=== PATIENT | female | born 1955 | race Two or more races ===

== ENCOUNTER 2019-04-24 17:55 | Emergency (ER) | payer SELFPAY ==
[~2019-04-24] VITALS: Ht 172.7 cm; Wt 82.0 kg
[2019-04-24 20:44] LABS: BASOPHILS % 0.8 % (0.0-2.0); EOSINOPHILS % 1.4 % (0.0-5.0); HEMATOCRIT. 39.7 % (36.0-48.0); HEMOGLOBIN. 13.3 g/dL (12.0-16.0); LYMPHOCYTES % 52.9 % (20.0-50.0); MEAN CORPUSCULAR HEMOGLOBIN 31.6 pg (28.0-32.0); MEAN CORPUSCULAR VOLUME 94.3 fL (81.0-99.0); MEAN PLATELET VOLUME 8.5 fl (7.4-10.4); MONOCYTES % 6.4 % (2.0-8.0); NEUTROPHILS % 38.5 % (40.0-76.0); PLATELET 199 x1000/uL (130-400); RED CELL DISTRIBUTION WIDTH 16.8 % (11.6-14.6)
[2019-04-24 20:44] LABS: CLARITY URINE CLEAR (CLEAR); COLOR URINE YELLOW (YELLOW); KETONES URINE NEGATIVE (NEGATIVE); LEUKOCYTE ESTERASE URINE TRACE (NEGATIVE); NITRITE URINE NEGATIVE (NEGATIVE); OCCULT BLOOD URINE NEGATIVE (NEGATIVE); PROTEIN URINE NEGATIVE (NEGATIVE); SPECIFIC GRAVITY URINE 1.012 (1.005-1.030); UROBILINOGEN URINE 0.2 E.U./dL (0.2-1.0)
[2019-04-24 20:51] LABS: *AMPHETAMINES SCREEN URINE NEGATIVE (NEGATIVE); *BARBITURATES SCREEN URINE NEGATIVE (NEGATIVE); *BENZODIAZEPINES SCREEN URINE NEGATIVE (NEGATIVE); *COCAINE SCREEN URINE NEGATIVE (NEGATIVE); METHADONE URINE SCREEN NEGATIVE (NEGATIVE)
[2019-04-24 20:52] LABS: CHLORIDE 113 mEq/L (98-107)
[2019-04-24 20:52] LABS: CANNABINOID URINE SCREEN NEGATIVE (NEGATIVE); OPIATES URINE SCREEN NEGATIVE (NEGATIVE); PHENCYCLIDINE URINE SCREEN NEGATIVE (NEGATIVE)
[2019-04-24 20:57] LABS: ETHANOL BLOOD 188 mg/dL
[2019-04-24] MEDS ORDERED: PHENYTOIN SODIUM EXTENDED 100MG CAPSULE PO ONE (21:45)
[2019-04-25] MEDS ORDERED: IBUPROFEN 600MG TABLET PO ONE (13:00)
[2019-04-25 13:38] VITALS: BP 114/65
== END 2019-04-25 15:00 | disposition home or self-care (01) ==
LOC: EDBD → ER 19:02
DX: R07.9 Chest pain, unspecified (principal); R45.851 Suicidal ideations; G40.909 Epilepsy, unspecified, not intractable, without status epilepticus; G89.29 Other chronic pain; M54.9 Dorsalgia, unspecified; F20.9 Schizophrenia, unspecified; F17.210 Nicotine dependence, cigarettes, uncomplicated
CPT/HCPCS: 36415; 71045; 80185; 80305; 80307; 80320; 80329; 81003; 84484; 93005; 99284; 99406; G0480

== ENCOUNTER 2019-05-31 10:15 | Emergency (ER) | payer SELFPAY ==
[~2019-05-31] VITALS: Ht 167.6 cm; Wt 65.0 kg
[2019-05-31 10:18] VITALS: BP 186/98
[2019-05-31] MEDS ORDERED: HYDROCODONE/ACETAMINOPHEN 5/325MG TABLET PO ONE (11:30)
== END 2019-05-31 13:00 | disposition home or self-care (01) ==
LOC: ER 10:15
DX: S70.02XA Contusion of left hip, initial encounter (principal); E11.9 Type 2 diabetes mellitus without complications; I10 Essential (primary) hypertension; W01.0XXA Fall on same level from slipping, tripping and stumbling without subsequent striking against object, initial encounter; Y93.01 Activity, walking, marching and hiking; Y92.89 Other specified places as the place of occurrence of the external cause; Y99.8 Other external cause status
CPT/HCPCS: 73503; 99283

== ENCOUNTER 2019-08-09 10:29 | Inpatient (IN) | payer OTHER, MEDICAID ==
[~2019-08-09] VITALS: Ht 172.7 cm; Wt 60.3 kg
[2019-08-09] MEDS ORDERED: SODIUM CHLORIDE 0.9% 1,000 ML IV ONE (11:35)
[2019-08-09 12:09] LABS: EOSINOPHILS % 0.8 % (0.0-5.0); HEMATOCRIT. 39.1 % (36.0-48.0); HEMOGLOBIN. 13.4 g/dL (12.0-16.0); LYMPHOCYTES % 52.2 % (20.0-50.0); MEAN CORPUSCULAR HEMOGLOBIN 32.5 pg (28.0-32.0); MEAN CORPUSCULAR VOLUME 95.2 fL (81.0-99.0); MEAN PLATELET VOLUME 8.8 fl (7.4-10.4); MONOCYTES % 8.6 % (2.0-8.0); NEUTROPHILS % 37.4 % (40.0-76.0); PLATELET 176 x1000/uL (130-400); RED BLOOD CELL COUNT 4.11 mill/uL (4.2-5.4); RED CELL DISTRIBUTION WIDTH 15.3 % (11.6-14.6)
[2019-08-09 12:17] LABS: INR 1.1; PROTHROMBIN TIME 10.8 sec (9.6-11.0)
[2019-08-09 12:18] LABS: CHLORIDE 110 mEq/L (98-107)
[2019-08-09 12:21] LABS: ETHANOL BLOOD 52 mg/dL
[2019-08-09] MEDS ORDERED: ASPIRIN 325MG EC TABLET PO ONE (12:45)
[2019-08-09 20:30] VITALS: BP 135/60
[2019-08-09] MEDS ORDERED: QUET300T5 PO (22:02)
[2019-08-09] MEDS ORDERED: PHEN100C4 PO (22:02)
[2019-08-09] MEDS ORDERED: PHEN30TA42 PO (22:02)
[2019-08-09] MEDS ORDERED: METF-414 PO (22:02)
[2019-08-09] MEDS ORDERED: ARIP20TA2 GT (22:02)
[2019-08-09] MEDS ORDERED: ATEN50TA PO (22:02)
[2019-08-09] MEDS ORDERED: SERT20OR PO (22:02)
[2019-08-09] MEDS ORDERED: DEXTROSE 50% WATER 50ML SYRINGE IV PRN (22:15)
[2019-08-09] MEDS ORDERED: HYDROCODONE/ACETAMINOPHEN 5/325MG TABLET PO NR (22:15)
[2019-08-10] VITALS: BP 102/51
[2019-08-10] MEDS ORDERED: LORAZEPAM 2MG/ML CPJ IV PRN (01:15)
[2019-08-10] MEDS ORDERED: MAGNESIUM/ALUMINUM HYDROXIDE/SIMETHICONE 30ML UDC PO PRN (01:15)
[2019-08-10] MEDS ORDERED: ACETAMINOPHEN 325MG TABLET PO PRN (01:15)
[2019-08-10] MEDS ORDERED: DIPHENHYDRAMINE 50MG/ML VIAL IV PRN (01:15)
[2019-08-10] MEDS ORDERED: CLONIDINE 0.1MG TABLET PO PRN (01:15)
[2019-08-10] MEDS ORDERED: IPRATROPIUM/ALBUTEROL 0.5-3(2.5)MG/3ML NEB HHN PRN (01:15)
[2019-08-10] MEDS ORDERED: ONDANSETRON HCL 4MG/2ML INJ IV PRN (01:15)
[2019-08-10] MEDS ORDERED: DEXTROSE 50% WATER 50ML SYRINGE IV PRN (01:15)
[2019-08-10 04:00] VITALS: BP 143/64
[2019-08-10] MEDS: PHENYTOIN SODIUM EXTENDED 100MG CAPSULE PO SCH ×3 (05:10→21:17)
[2019-08-10] MEDS: SODIUM CHLORIDE 0.9% INJ 3ML FLUSH IVF SCH ×3 (05:27→21:26)
[2019-08-10] MEDS: BLOOD SUGAR DIAGNOSTIC STRIP TEST SCH ×4 (05:27→21:16)
[2019-08-10] MEDS ORDERED: BLOOD SUGAR DIAGNOSTIC STRIP TEST SCH (06:45)
[2019-08-10] MEDS: INSULIN LISPRO 100 UNITS/ML SUBCUT SCH ×4 (06:47→21:00)
[2019-08-10] MEDS ORDERED: INSULIN LISPRO 100 UNITS/ML SUBCUT SCH (07:15)
[2019-08-10 07:40] LABS: LDL CHOLESTEROL 96 mg/dL (5-100)
[2019-08-10 07:41] LABS: HDL CHOLESTEROL 87 mg/dL (40-59)
[2019-08-10 08:00] VITALS: BP 126/60
[2019-08-10] MEDS ORDERED: PNEUMOCOCCAL 23-VAL P-SAC VAC 0.5 ML IM ONE (08:00)
[2019-08-10] MEDS: ENOXAPARIN 40MG/0.4ML SYR SUBCUT SCH (09:00)
[2019-08-10] MEDS ORDERED: INFLUENZA VIRUS VACCINE(AFLURIA) 0.5ML SYR IM ONE (10:00)
[2019-08-10] MEDS: ARIPIPRAZOLE 5MG TABLET PO SCH (10:39)
[2019-08-10] MEDS: ASPIRIN 81MG EC TABLET PO SCH (10:39)
[2019-08-10] MEDS: ATENOLOL 50 MG TABLET PO SCH (10:40)
[2019-08-10 12:00] VITALS: BP 122/58
[2019-08-10 16:00] VITALS: BP 141/68
[2019-08-10] MEDS: METFORMIN HCL 500MG TABLET PO SCH ×2 (17:15→18:17)
[2019-08-10 20:00] VITALS: BP 145/70
[2019-08-10] MEDS ORDERED: PHENYTOIN SODIUM 1,000 MG in SODIUM CHLORIDE 0.9% 100 ML IV SCH (20:00)
[2019-08-10] MEDS ORDERED: QUETIAPINE FUMARATE 50MG TABLET PO SCH (21:00)
[2019-08-10] MEDS ORDERED: ATORVASTATIN CALCIUM 10MG TABLET PO SCH (21:00)
[2019-08-10] MEDS ORDERED: PHENOBARBITAL 30 MG TABLET PO SCH (21:00)
[2019-08-11] VITALS (7 sets, daily range): BP systolic 85–122; BP diastolic 40–58
[2019-08-11] MEDS: BLOOD SUGAR DIAGNOSTIC STRIP TEST SCH ×2 (06:41→11:32)
[2019-08-11] MEDS: PHENYTOIN SODIUM EXTENDED 100MG CAPSULE PO SCH ×2 (06:44→14:38)
[2019-08-11] MEDS: SODIUM CHLORIDE 0.9% INJ 3ML FLUSH IVF SCH ×2 (06:45→14:00)
[2019-08-11] MEDS: INSULIN LISPRO 100 UNITS/ML SUBCUT SCH ×2 (07:15→11:32)
[2019-08-11] MEDS: METFORMIN HCL 500MG TABLET PO SCH (08:09)
[2019-08-11] MEDS: ASPIRIN 81MG EC TABLET PO SCH (08:09)
[2019-08-11] MEDS: ARIPIPRAZOLE 5MG TABLET PO SCH (08:09)
[2019-08-11] MEDS: ATENOLOL 50 MG TABLET PO SCH (08:09)
[2019-08-11] MEDS: ENOXAPARIN 40MG/0.4ML SYR SUBCUT SCH (08:16)
== END 2019-08-11 15:00 | disposition home or self-care (01) | DRG 52 ==
LOC: ER 10:29 → EDBEDREQTM 13:34 → EDBEDREQ 13:34 → ENRESERV 17:42 → 5WST 20:52
PROVIDERS: ADMIT Internal Medicine; ATTEND Internal Medicine
DX: G93.41 Metabolic encephalopathy (principal); I69.354 Hemiplegia and hemiparesis following cerebral infarction affecting left non-dominant side; E11.9 Type 2 diabetes mellitus without complications; F17.200 Nicotine dependence, unspecified, uncomplicated; R07.89 Other chest pain; F32.9 Major depressive disorder, single episode, unspecified; G40.909 Epilepsy, unspecified, not intractable, without status epilepticus; I10 Essential (primary) hypertension; Z96.659 Presence of unspecified artificial knee joint; F10.10 Alcohol abuse, uncomplicated; Z82.49 Family history of ischemic heart disease and other diseases of the circulatory system; Z83.3 Family history of diabetes mellitus; Z79.899 Other long term (current) drug therapy; Z79.84 Long term (current) use of oral hypoglycemic drugs
CPT/HCPCS: 36415; 70551; 71045; 80053; 80061; 80185; 80320; 82962; 83036; 84484; 85025; 90686; 90732; 93005; 93880; 96372; 97162; 99285; J1165; J1650; J7030; J7050; G0480